=== PATIENT | female | born 1935 | race Caucasian/White ===

== ENCOUNTER 2017-10-19 08:14 | Inpatient (IN) | payer MEDICARE, OTHER ==
[~2017-10-19] VITALS: Ht 162.6 cm; Wt 75.7 kg
[2017-10-19 09:04] LABS: BASOPHILS # (AUTO) 0.04 x10^3/uL (0-0.1); BASOPHILS % (AUTO) 1 % (0-1); EOSINOPHILS % (AUTO) 9 % (1-7); LYMPHOCYTES # (AUTO) 0.81 x10^3/uL (1-3.4); LYMPHOCYTES % (AUTO) 23 % (22-44); MD NO; MEAN CORPUSCULAR HEMOGLOBIN 27.5 pg (27.0-34.8); MEAN CORPUSCULAR HGB CONC 33.3 g/dL (32.4-35.8); MEAN CORPUSCULAR VOLUME 82.6 fL (80-100); MONOCYTES # (AUTO) 0.41 x10^3/uL (0.2-0.8); MONOCYTES % (AUTO) 12 % (2-9); NEUTROPHILS % (AUTO) 56 % (42-75); PLATELET COUNT 168 x10^3/uL (130-400); RED BLOOD COUNT 3.41 x10^6/uL (3.82-5.3)
[2017-10-19 09:13] LABS: ALBUMIN 3.5 g/dL (3.4-5.0); ANION GAP 6 mmol/L (5-15); CALCIUM 8.8 mg/dL (8.5-10.1); CHLORIDE 112 mmol/L (98-107); CREATININE 0.86 mg/dL (0.55-1.02)
[2017-10-19 09:19] LABS: INTERNATIONAL NORMALIZED RATIO 0.96 (0.93-1.1); PROTHROMBIN TIME 9.9 Seconds (9.6-11.5)
[2017-10-19] MEDS ORDERED: SODIUM CHLORIDE FLUSH 10ML SYR IVF ONE (09:30)
[2017-10-19] MEDS ORDERED: TRAM50TA2 PO (10:13)
[2017-10-19] MEDS ORDERED: AMOX-291 PO (10:13)
[2017-10-19] MEDS ORDERED: OMEP-110 PO (10:13)
[2017-10-19] MEDS ORDERED: METH500T7 PO (10:13)
[2017-10-19] MEDS ORDERED: GABA300C10 PO (10:13)
[2017-10-19] MEDS ORDERED: CLAR500T PO (10:13)
[2017-10-19] MEDS ORDERED: OMNIPAQUE 350 MG/ML, 150 ML BOTTLE ONE (10:32)
[2017-10-19] MEDS ORDERED: ASPIRIN 325 MG TABLET PO STA (12:50)
[2017-10-19] MEDS ORDERED: LABETALOL 5MG/ML, 20ML IVPush PRN (13:30)
[2017-10-19] MEDS ORDERED: ONDANSETRON 2MG/ML, 2ML IVPush PRN (13:30)
[2017-10-19] MEDS ORDERED: ACETAMINOPHEN 325 MG TABLET PO PRN (13:30)
[2017-10-19] MEDS ORDERED: PLEASE ENTER ALLERGIES MC SCH (13:30)
[2017-10-19 13:35] VITALS: BP 131/78
[2017-10-19 13:50] VITALS: BP 131/78
[2017-10-19 14:01] LABS: BASOPHILS # (AUTO) 0.04 x10^3/uL (0-0.1); BASOPHILS % (AUTO) 1 % (0-1); EOSINOPHILS # (AUTO) 0.24 x10^3/uL (0-0.4); EOSINOPHILS % (AUTO) 8 % (1-7); LYMPHOCYTES # (AUTO) 0.87 x10^3/uL (1-3.4); LYMPHOCYTES % (AUTO) 28 % (22-44); MD NO; MEAN CORPUSCULAR HEMOGLOBIN 28.2 pg (27.0-34.8); MEAN CORPUSCULAR HGB CONC 33.8 g/dL (32.4-35.8); MEAN CORPUSCULAR VOLUME 83.5 fL (80-100); MEAN PLATELET VOLUME 8.7 fL (7.4-10.4); MONOCYTES # (AUTO) 0.31 x10^3/uL (0.2-0.8); MONOCYTES % (AUTO) 10 % (2-9); NEUTROPHILS # (AUTO) 1.64 x10^3/uL (1.8-6.8); NEUTROPHILS % (AUTO) 53 % (42-75); PLATELET COUNT 176 x10^3/uL (130-400); RED BLOOD COUNT 3.42 x10^6/uL (3.82-5.3)
[2017-10-19 14:09] LABS: ABSOLUTE RETICS # 0.112 x10^6/uL (0.5-2.5); RED BLOOD COUNT 3.39 x10^6/uL (3.82-5.3); RETICULOCYTE COUNT % 3.31 % (0.5-1.5)
[2017-10-19 14:55] LABS: HEMOGLOBIN A1C 4.6 % (4.2-6.3)
[2017-10-19 14:57] LABS: FREE T4 (FREE THYROXINE) 1.04 ng/dL (0.76-1.46)
[2017-10-19] MEDS: HEPARIN 5,000 UNITS/ML, 1ML SQ SCH ×2 (15:33→22:35)
[2017-10-19] MEDS: SODIUM CHLORIDE 0.9% 1,000 ML IV SCH ×2 (15:33→22:34)
[2017-10-19] MEDS ORDERED: MORPHINE SULFATE 4 MG/ML, 1ML IVPush PRN (17:30)
[2017-10-19 19:29] VITALS: BP 127/78
[2017-10-19] MEDS: ATORVASTATIN 80 MG TABLET PO SCH (22:34)
[2017-10-20 02:00] VITALS: BP 135/79
[2017-10-20 05:46] LABS: MEAN CORPUSCULAR HEMOGLOBIN 28.8 pg (27.0-34.8); MEAN CORPUSCULAR HGB CONC 34.5 g/dL (32.4-35.8); MEAN CORPUSCULAR VOLUME 83.5 fL (80-100); MEAN PLATELET VOLUME 9.4 fL (7.4-10.4); PLATELET COUNT 156 x10^3/uL (130-400); RED CELL DISTRIBUTION WIDTH 22.2 % (9.6-15.2)
[2017-10-20 05:53] LABS: ALBUMIN 3.1 g/dL (3.4-5.0); ANION GAP 9 mmol/L (5-15); CALCIUM 8.3 mg/dL (8.5-10.1); CHLORIDE 111 mmol/L (98-107)
[2017-10-20 05:58] LABS: ALANINE AMINOTRANSFERASE 17 U/L (12-78); ALKALINE PHOSPHATASE 115 U/L (45-117); BILIRUBIN,TOTAL 0.4 mg/dL (0.2-1.0); CREATININE 0.71 mg/dL (0.55-1.02); TOTAL PROTEIN 6.7 g/dL (6.4-8.2)
[2017-10-20 06:06] LABS: BASOPHILS # (AUTO) 0.04 x10^3/uL (0-0.1); BASOPHILS % (AUTO) 1 % (0-1); EOSINOPHILS % (AUTO) 6 % (1-7); LYMPHOCYTES # (AUTO) 0.81 x10^3/uL (1-3.4); LYMPHOCYTES % (AUTO) 24 % (22-44); MD SCAN; MONOCYTES # (AUTO) 0.34 x10^3/uL (0.2-0.8); MONOCYTES % (AUTO) 10 % (2-9); NEUTROPHILS # (AUTO) 2.04 x10^3/uL (1.8-6.8); NEUTROPHILS % (AUTO) 60 % (42-75)
[2017-10-20] MEDS: HEPARIN 5,000 UNITS/ML, 1ML SQ SCH ×3 (06:18→20:58)
[2017-10-20 07:49] VITALS: BP 147/80
[2017-10-20] MEDS: ASPIRIN 81 MG TABLET CHEW PO SCH (08:22)
[2017-10-20] MEDS: CYCLOBENZAPRINE 10 MG TABLET PO PRN (08:22)
[2017-10-20] MEDS: OXYcodone/APAP 5/325MG TABLET PO PRN ×2 (10:15→17:01)
[2017-10-20 11:30] LABS: CHOL/HDL RATIO 4.2; LDL/HDL RATIO 2.8 (0.5-3.0)
[2017-10-20 15:08] VITALS: BP 148/81
[2017-10-20 20:05] VITALS: BP 121/74
[2017-10-20] MEDS: ATORVASTATIN 80 MG TABLET PO SCH (20:57)
[2017-10-20] MEDS: SODIUM CHLORIDE 0.9% 1,000 ML IV SCH (20:57)
[2017-10-21] MEDS: OXYcodone/APAP 5/325MG TABLET PO PRN ×3 (00:29→21:58)
[2017-10-21 00:31] VITALS: BP 143/83
[2017-10-21] MEDS: HEPARIN 5,000 UNITS/ML, 1ML SQ SCH ×3 (05:09→23:17)
[2017-10-21 05:29] LABS: MEAN CORPUSCULAR HEMOGLOBIN 27.8 pg (27.0-34.8); MEAN CORPUSCULAR HGB CONC 33.3 g/dL (32.4-35.8); MEAN CORPUSCULAR VOLUME 83.3 fL (80-100); MEAN PLATELET VOLUME 9.2 fL (7.4-10.4); PLATELET COUNT 134 x10^3/uL (130-400); RED BLOOD COUNT 3.21 x10^6/uL (3.82-5.3); RED CELL DISTRIBUTION WIDTH 21.3 % (9.6-15.2)
[2017-10-21 06:38] LABS: BASOPHILS # (AUTO) 0.03 x10^3/uL (0-0.1); BASOPHILS % (AUTO) 1 % (0-1); EOSINOPHILS # (AUTO) 0.15 x10^3/uL (0-0.4); EOSINOPHILS % (AUTO) 6 % (1-7); LYMPHOCYTES # (AUTO) 0.81 x10^3/uL (1-3.4); LYMPHOCYTES % (AUTO) 33 % (22-44); MD SCAN; MONOCYTES # (AUTO) 0.26 x10^3/uL (0.2-0.8); MONOCYTES % (AUTO) 11 % (2-9); NEUTROPHILS % (AUTO) 49 % (42-75)
[2017-10-21 08:00] VITALS: BP 137/99
[2017-10-21] MEDS: CYCLOBENZAPRINE 10 MG TABLET PO PRN ×2 (09:16→21:58)
[2017-10-21] MEDS: ASPIRIN 81 MG TABLET CHEW PO SCH (09:16)
[2017-10-21] MEDS ORDERED: GABAPENTIN 400 MG CAPSULE PO SCH (11:30)
[2017-10-21] MEDS: GABAPENTIN 300 MG CAPSULE PO SCH ×3 (12:00→21:58)
[2017-10-21 14:11] VITALS: BP 154/72
[2017-10-21 19:54] VITALS: BP 143/73
[2017-10-21] MEDS: ATORVASTATIN 80 MG TABLET PO SCH (21:58)
[2017-10-22 01:36] VITALS: BP 124/79
[2017-10-22 05:12] LABS: BASOPHILS # (AUTO) 0.04 x10^3/uL (0-0.1); BASOPHILS % (AUTO) 1 % (0-1); EOSINOPHILS # (AUTO) 0.18 x10^3/uL (0-0.4); EOSINOPHILS % (AUTO) 6 % (1-7); LYMPHOCYTES # (AUTO) 1.04 x10^3/uL (1-3.4); LYMPHOCYTES % (AUTO) 33 % (22-44); MD NO; MEAN CORPUSCULAR HEMOGLOBIN 27.7 pg (27.0-34.8); MEAN CORPUSCULAR HGB CONC 33.4 g/dL (32.4-35.8); MEAN CORPUSCULAR VOLUME 83.1 fL (80-100); MONOCYTES # (AUTO) 0.33 x10^3/uL (0.2-0.8); MONOCYTES % (AUTO) 11 % (2-9); NEUTROPHILS # (AUTO) 1.52 x10^3/uL (1.8-6.8); NEUTROPHILS % (AUTO) 49 % (42-75); PLATELET COUNT 166 x10^3/uL (130-400); RED BLOOD COUNT 3.57 x10^6/uL (3.82-5.3); RED CELL DISTRIBUTION WIDTH 20.8 % (9.6-15.2)
[2017-10-22 05:13] LABS: CHLORIDE 111 mmol/L (98-107)
[2017-10-22 05:18] LABS: ALANINE AMINOTRANSFERASE 15 U/L (12-78); ALBUMIN 3.1 g/dL (3.4-5.0); ALKALINE PHOSPHATASE 114 U/L (45-117); ANION GAP 7 mmol/L (5-15); BILIRUBIN,TOTAL 0.4 mg/dL (0.2-1.0); CALCIUM 8.7 mg/dL (8.5-10.1); TOTAL PROTEIN 6.8 g/dL (6.4-8.2)
[2017-10-22] MEDS: GABAPENTIN 300 MG CAPSULE PO SCH (05:43)
[2017-10-22] MEDS: OXYcodone/APAP 5/325MG TABLET PO PRN (05:43)
[2017-10-22 07:31] VITALS: BP 137/71
[2017-10-22] MEDS: ASPIRIN 81 MG TABLET CHEW PO SCH (09:24)
[2017-10-22] MEDS: HEPARIN 5,000 UNITS/ML, 1ML SQ SCH (09:24)
[2017-10-22] MEDS ORDERED: ASPI-515 PO (09:51)
[2017-10-22] MEDS ORDERED: ATOR-2 PO (09:51)
== END 2017-10-22 11:43 | disposition home or self-care (01) | DRG 65 ==
LOC: ED 08:50 → EDIP 12:03 → 4EST 13:10
PROVIDERS: ADMIT Hospitalist; ATTEND Hospitalist
DX: I63.512 Cerebral infarction due to unspecified occlusion or stenosis of left middle cerebral artery (principal); G81.91 Hemiplegia, unspecified affecting right dominant side; H53.2 Diplopia; G89.29 Other chronic pain; E05.90 Thyrotoxicosis, unspecified without thyrotoxic crisis or storm; D64.9 Anemia, unspecified; G51.0 Bell's palsy; R47.1 Dysarthria and anarthria; Z91.81 History of falling; Z82.3 Family history of stroke; Z86.73 Personal history of transient ischemic attack (TIA), and cerebral infarction without residual deficits; Z90.710 Acquired absence of both cervix and uterus; Z87.81 Personal history of (healed) traumatic fracture; Z88.8 Allergy status to other drugs, medicaments and biological substances
CPT/HCPCS: 0042T; 36415; 70450; 70496; 70498; 70551; 80048; 80053; 80061; 82040; 82607; 82728; 83036; 83540; 83550; 83615; 84439; 84443; 84481; 85025; 85045; 85610; 85730; 93005; 93306; 96372; 96374; 99291; G0378; J1644; Q9967; 92523-GN; J7030